=== PATIENT | female | born 1930 | race Caucasian/White ===

== ENCOUNTER 2017-12-12 07:41 | Emergency (ER) | payer MEDICARE, OTHER ==
[~2017-12-12] VITALS: Ht 147.3 cm; Wt 63.5 kg
[~2017-12-12 07:41] MED LIST: ALENDRONATE SOD70 M2 PO; ALLOPURINOL300 M1 PO; ASPIR 8181 MG PO; AUGMENTIN 500-1 EACH PO; DELSYM30 MG/5 M1 PO; FERROUS SULFAT325 M3 PO; FLEXERIL 5MG TAB5 MG PO; FUROSEMIDE20 M1 PO; HYDRODIURIL 2525 MG PO; KEFLEX500 MG PO; LASIX20 MG PO; LOPRESSOR50 MG PO; MASON NATURAL325 MG PO; MELOXICAM15 MG PO; METHYLPREDNISOLO4 M1 PO; METHYLPREDNISONE4 MG PO; METOPROLOL TART50 M1 PO; MOBIC7.5 M1 PO; NORVASC5 M1 PO; OMEPRAZOLE40 M1 PO; POTASSIUM CHLO10 ME1 PO; POTASSIUM CHLO10 ME5 PO; PREDNISONE2.5 M1 PO; PRINIVIL20 MG PO; ROBITUSSIN COU1 EACH PO; TYLENOL #31 TAB PO; TYLENOL TAB 32325 MG PO; TYLENOL WITH C1 EACH PO; ULTRAM(MONOGRAP50 MG PO; VISTARIL25 MG PO
--- NOTE | 2017-12-12 08:27 | ED GENERAL ADULT ---
History of Present Illness General Chief Complaint: Lower Extremity Problems Stated Complaint: LOWER LEG CELLULITIS Source: patient, old records Exam Limitations: no limitations Allergies Coded Allergies: colchicine (Intermediate, PALPITATIONS 05/31/17) morphine (Intermediate, N/V 05/31/17) Penicillins (Mild, NAUSEA 05/31/17) Sulfa (Sulfonamide Antibiotics) (Mild, NAUSEA 05/31/17) Reconcile Medications Alendronate Sodium 70 MG TABLET 1 TAB PO QW BONES (Reported) in the morning, at least 30 minutes before the first food, beverage, or medication of the day Allopurinol 300 MG TABLET 1 TAB PO DAILY GOUT (Reported) Amlodipine Besylate (Norvasc) 5 MG TABLET 1 TAB PO DAILY HTN (Reported) Augmentin (Augmentin 500-125 Tablet) 500 MG-125 MG TABLET 1 TAB PO BID SINUSITIS Cephalexin (Keflex) 750 MG CAPSULE 1 CAP PO BID CELLULITIS Dextromethorphan Polistirex (Delsym) 30 MG/5 ML RE.ER.12H 5-10 ML PO Q6 PRN COUGH Ferrous Sulfate 325 MG TABLET 1 TAB PO DAILY VITAMIN (Reported) Furosemide 20 MG TABLET 1 TAB PO DAILY WATER PILL (Reported) Metoprolol Tartrate 50 MG TABLET 1 TAB PO BID HTN (Reported) Omeprazole 40 MG CAPSULE.DR 1 CAP PO DAILY GERD (Reported) Potassium Chloride 10 MEQ TAB.ER.PRT 1 TAB PO DAILY SUPPLEMENT (Reported) Prednisone 2.5 MG TABLET 1 TAB PO DAILY STEROID (Reported) Triage Note: PT STATES THAT SHE HAS BEEN ON DOXY FOR 9 DAYS AFOR LLE CELLULITIS, STATES THAT SHE THINKS SHE BUMPED IT AND HAS AN OPEN AREA THAT THE SCAB FELL OFF. PT FEELS ITS GETTING RED AGAIN. ALSO STATES THAT SHE HAS HAD A HEADACHE SINCE LAST PM, 05/10. ALSO STATES THAT SHE VOMITTED X 1 LAST PM. PT WITH MULTIPLE COMPLAINTS Triage Nurses Notes Reviewed? yes Onset: Gradual Duration: day(s): Timing: recent history Severity: moderate HPI: 87-year-old female with history of DM, HTN, CAD presents emergency department complaining of skin infection and skin wound to left lower leg for over 2 weeks. Patient states that she was seen and evaluated at an urgent care 9 days ago for a nonhealing skin wound to left lower leg, she was started on doxycycline. Patient is unsure of how she injured her leg, believes she bumped it on something. Patient states that despite using antibiotics she has had redness, pain, and swelling to left lower leg. Patient states that pain was so bad that she could not sleep last night. Patient has also had intermittent headaches this week, worse last night. Patient complaining of nausea with one episode of vomiting last night. Patient also reporting intermittent chest pains, she last had chest pain 3 days ago, no chest pain currently or today. Patient reports dyspnea this morning. Patient also notes fevers and chills beginning last night. (Tyra FARRAR,Nataliya Serna) Vital Signs & Intake/Output Vital Signs & Intake/Output Vital Signs Date Time Temp Pulse Resp B/P B/P Pulse O2 O2 Flow FiO2 Mean Ox Delivery Rate 12/12 1441 97.6 68 18 140/69 98 Room Air 12/12 1234 98.1 67 16 176/80 97 Room Air 12/12 1149 98.0 70 16 159/75 97 Room Air 12/12 1046 97.7 71 18 157/75 96 Room Air 12/12 1001 97 Room Air 12/12 0744 97.6 114 18 157/80 96 Room Air (Shelley MARMOLEJO,Joe Parmar) Past History Travel History Traveled to [place] past 21 day No Medical History Any Pertinent Medical History? 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 FATHER, , Age 70; Cause: Alcoholic cirrhosis. Hx Contributory? No (Nataliya Woods) Review of Systems Review of Systems Constitutional: Reports: see HPI. EENTM: Reports: no symptoms. Respiratory: Reports: see HPI. Cardiovascular: Reports: see HPI. GI: Reports: see HPI. Genitourinary: Reports: no symptoms. Musculoskeletal: Reports: no symptoms. Skin: Reports: see HPI. Neurological/Psychological: Reports: see HPI. Hematologic/Endocrine: Reports: no symptoms. Immunologic/Allergic: Reports: no symptoms. All Other Systems: Reviewed and Negative (Tyra FARRAR,Nataliya Serna) Physical Exam Physical Exam General Appearance: well developed/nourished, no apparent distress, alert, awake Head: atraumatic, normal appearance Eyes: Bilateral: normal appearance, PERRL, EOMI. Ears, Nose, Throat: normal pharynx, normal ENT inspection, hearing grossly normal Neck: normal inspection, supple, full range of motion Respiratory: normal breath sounds, no respiratory distress, lungs clear Cardiovascular: tachycardia Peripheral Pulses: 2+ dorsalis pedis (R), 2+ dorsalis pedis (L) Gastrointestinal: normal bowel sounds, soft, non-tender, no organomegaly Back: normal inspection, normal range of motion Extremities: 2x3cm wound to left lower leg with scab present, no active drainage , mild surrounding erythema, warmth, and tenderness Neurologic/Psych: awake, alert, oriented x 3, 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 Yes CVA/TIA Diagnosis: No Sepsis Present: No Sepsis Focused Exam Completed? No (Nataliya Woods) Progress Differential Diagnoses I considered the following diagnoses in my evaluation of the patient: [ Cellulitis, acute coronary syndrome, sinusitis, influenza, gastroenteritis, sepsis, dehydration, electrolyte abnormality] Diagnostic Imaging: Viewed by Me: Radiology Read, CT Scan. Discussed w/RAD: Radiology Read, CT Scan. Radiology Impression: PATIENT: CHARITY NGUYEN PRESENT AGE: 87 PATIENT ACCOUNT NO: [id number] : 30 LOCATION: [facility] ORDERING PHYSICIAN: Nataliya FARRAR SERVICE DATE: 12/12/17 EXAM TYPE: RAD - XRY-CHEST XRAY, TWO VIEWS EXAMINATION: XR CHEST CLINICAL INFORMATION : Dyspnea and tachycardia. Evaluate for pneumonia, effusion and congestion. COMPARISON: 05/31/2017 TECHNIQUE: 2 views of the chest were obtained. FINDINGS: Lungs are well expanded. There is an old linear opacity of scarring in the inferior lingula. No pulmonary edema, consolidation or pleural effusion. No evidence of pneumonia. Mild cardiomegaly. Atherosclerotic calcification of coronary arteries. Again noted is a dilated appearance of the atherosclerotic, tortuous thoracic aorta. Mild dextrocurvature of the thoracic spine. Bones appear diffusely osteopenic. Cholelithiasis is observed within the upper abdomen. IMPRESSION: 1. Cardiomegaly without pulmonary edema or pleural effusion. 2. Grossly stable appearance of the dilated atherosclerotic aorta. 3. Cholelithiasis. DICTATED BY: Woo Levine MD DATE/TIME DICTATED:12/12/17848 HAIRSPRING INSPECTOR:RUDI DATE/TIME TRANSCRIBED:12/12/17848 CONFIDENTIAL, DO NOT COPY WITHOUT APPROPRIATE AUTHORIZATION. <Electronically signed in Other Vendor System> SIGNED BY: Woo Levine MD 12/12/1756, PATIENT: CHARITY NGUYEN PRESENT AGE: 87 PATIENT ACCOUNT NO: [id number] : 30 LOCATION: [facility] ORDERING PHYSICIAN: Nataliya FARRAR SERVICE DATE: 12/12/17 EXAM TYPE: CAT - CT HEAD WO IV CONTRAST CT HEAD WITHOUT CONTRAST CLINICAL INFORMATION: Persistent headache. COMPARISON: Head CT 02/22/2014. TECHNIQUE: Contiguous axial imaging was performed from the skull base to vertex without intravenous administration of contrast. FINDINGS: Moderate chronic microangiopathy. Intracranial atherosclerotic calcification. There is no intracranial hemorrhage, hydrocephalus, extra-axial surface collection, midline shift, or other herniation pattern. Stahl to white matter differentiation is diffusely maintained without evidence of an evolved acute territorial infarct. The basilar cisterns are preserved. No significant soft tissue abnormality. No acute osseous abnormality. There is a fluid level within the left sphenoid sinus the can be correlated for clinical signs of acute sinusitis. The left sphenoid sinus exhibits sclerotic wall thickening as the sequela of chronic sinusitis. The remaining imaged paranasal sinuses and the mastoid air cells are clear. Stable chronic anterior subluxation of the right mandibular condylar head. IMPRESSION: No acute intracranial abnormality. Moderate chronic microangiopathy. There is a fluid level within the left sphenoid sinus the can be correlated for clinical signs of acute sinusitis. Stable chronic anterior subluxation of the right mandibular condylar head. DICTATED BY: Joe Leary MD DATE/TIME DICTATED:1338 HAIRSPRING INSPECTOR:RUDI DATE/TIME TRANSCRIBED:12/12/171338 CONFIDENTIAL, DO NOT COPY WITHOUT APPROPRIATE AUTHORIZATION. <Electronically signed in Other Vendor System> SIGNED BY: Joe Leary MD 12/12/17 1347 Initial ED EKG: sinus rhythm @68bpm, nonspecific ST changes Prior EKG: unchanged (subtle ST changes x 04/28/16) (Tyra FARRAR,Nataliya Serna) Plan of Care: Orders Procedure Date/time Status Regular Diet 12/12 D Active TROPONIN LEVEL 12/12 1200 Complete EKG 12/12 1200 Active LACTIC ACID 12/12 1124 Complete RAPID VIRAL INFLUENZA A 12/12 0904 Complete BLOOD CULTURE 12/12 0825 Active TROPONIN LEVEL 12/12 0824 Complete LACTIC ACID 12/12 0824 Complete COMPREHENSIVE METABOLIC PANEL 12/12 0824 Complete CBC WITHOUT DIFFERENTIAL 12/12 0824 Complete EKG 12/12 0824 Active Current Medications Sig/Andres Start time Last Medication Dose Stop Time Status Admin Amlodipine Besylate 5 MG DAILY 12/12 1312 UNVr 12/12 (Norvasc) 1409 Metoprolol Tartrate 50 MG BID 12/12 1133 UNVr 12/12 (Lopressor) 1156 Sodium Chloride 1,000 ML Q6H 12/12 1030 AC 12/12 (Normal Saline 0.9%) 1034 Laboratory Tests 12/12/17 1152: Troponin I < 0.01 12/12/17 1152: Lactic Acid 1.6 12/12/17 0900: Anion Gap 16, Estimated GFR 59 L, BUN/Creatinine Ratio 16.7, Glucose 122 H, Lactic Acid 4.1 H, Calcium 9.6, Total Bilirubin 0.9, AST 47 H, ALT 52, Alkaline Phosphatase 82, Troponin I < 0.01, Total Protein 7.3, Albumin 4.1, Globulin 3.2, Albumin/Globulin Ratio 1.3, CBC w Diff NO MAN DIFF REQ, RBC 4.16 L, MCV 94.9, MCH 32.2 H, MCHC 33.9, RDW 15.8 H, MPV 8.1, Gran % 85.9 H, Lymphocytes % 6.4 L, Monocytes % 5.7, Eosinophils % 1.8, Basophils % 0.2, Absolute Granulocytes 5.3, Absolute Lymphocytes 0.4 L, Absolute Monocytes 0.4, Absolute Eosinophils 0.1, Absolute Basophils 0 Microbiology 12/12 09 NASOPHARYN: Influenza Virus A & B Rapid Smear - COMP 12/12 904 BLOOD: Blood Culture - RECD 12/12 899 BLOOD: Blood Culture - RECD Patient's EKG shows subtle ST changes compared to previous EKG. Patient has no active chest pain currently, experienced chest pain 3 days ago. We will obtain repeat EKG and troponin given the patient's cardiac history. Patient's mild hypokalemia was treated with oral potassium replacement here in the emergency department. Repeat EKG she was improving so ST changes, second troponin is negative. This patient does not meet SIRS criteria at this time despite elevated LActic acid. Repeat lactic acid level has improved following fluids. Patient's head CT scan shows possible sinusitis, no acute intracranial abnormality. Patient's wound shows possible mild cellulitis however no significant swelling or tenderness. Patient to follow-up with wound clinic regarding her unhealed chronic wound. Dr. Rosa presented to see and evaluate the patient who agrees with this plan. Will initiate Keflex antibiotic given her penicillin and sulfa allergies. The patient is nontoxic appearing, afebrile , no leukocytosis. Blood pressure has stabilized following patient's home oral medication. The patient agrees with the plan of care. (Tyra FARRAR,Nataliya Serna) (Shelley MARMOLEJO,Joe Parmar) Departure Departure Disposition: HOME OR SELF CARE Condition: Stable Clinical Impression Primary Impression: Hypokalemia Secondary Impressions: Wound cellulitis Referrals: Brandin Esparza MD (PCP/Family) Additional Instructions: Begin Keflex antibiotics as prescribed. Follow-up with the [facility] wound clinic regarding your wound. Keep area clean and dry. Begin The nasal spray that your primary care doctor prescribed you for sinusitis. Continue your blood pressure medication as prescribed. Follow-up with your primary care doctor. It is also recommended to follow-up with your automotive product engineer. Return if any worsening symptoms or concerns. Please note that there might be incidental findings in your evaluation that are unrelated to the current emergency department visit. Please notify your primary care doctor about this emergency department visit in order to obtain and review all of the testing performed so that these incidental findings can be monitored as needed. If you had an x-ray performed, please understand that some fractures may not be seen on the initial set of x-rays. If your symptoms persist you might need a repeat set of x-rays to check for such a fracture. If you had a laceration evaluated, please understand that foreign bodies such as glass or wood may not be visible to the naked eye or on plain x-rays. If the wound becomes red, swollen, increasingly more painful or if there is any drainage from the wound, please have it reevaluated by a physician for the possibility of a retained foreign body. If you're unable to follow up as outlined in the discharge instructions please return to the emergency department. Thank you for choosing the [facility] Emergency Department for your care. It was a pleasure to serve you today. Departure Forms: Customer Survey General Discharge Information Prescriptions: Current Visit Scripts Cephalexin (Keflex) 1 CAP PO BID #[id number] CAP (Nataliya Woods) PA/COMMUNITY DEVELOPMENT OFFICER Co-Sign Statement Statement: ED Attending supervision documentation- [X] I saw and evaluated the patient. I have also reviewed all the pertinent lab results and diagnostic results. I agree with the findings and the plan of care as documented in the PA's/COMMUNITY DEVELOPMENT OFFICER's documentation. Patient presents for evaluation of generalized weakness with shakiness and recurrence of left lateral leg pain. Patient is currently being treated for cellulitis in that region likely initiated by an ulceration. Physical examination reveals erythema and tenderness surrounding the ulceration along with warmth. There is also an area of erythema over the area of the left patella. [] I have reviewed the ED Record and agree with the PA's/COMMUNITY DEVELOPMENT OFFICER's documentation. [] Additions or exceptions (if any) to the PAs/COMMUNITY DEVELOPMENT OFFICER's note and plan are summarized below: [] (Shelley MARMOLEJO,Joe Parmar) Critical Care Note Critical Care Note Critical Care Time: non-applicable (Nataliya Woods)
--- NOTE | 2017-12-12 08:56 | RADIOLOGY REPORT ---
EXAMINATION: XR CHEST CLINICAL INFORMATION: Dyspnea and tachycardia. Evaluate for pneumonia, effusion and congestion. COMPARISON: 05/31/2017 TECHNIQUE: 2 views of the chest were obtained. FINDINGS: Lungs are well expanded. There is an old linear opacity of scarring in the inferior lingula. No pulmonary edema, consolidation or pleural effusion. No evidence of pneumonia. Mild cardiomegaly. Atherosclerotic calcification of coronary arteries. Again noted is a dilated appearance of the atherosclerotic, tortuous thoracic aorta. Mild dextrocurvature of the thoracic spine. Bones appear diffusely osteopenic. Cholelithiasis is observed within the upper abdomen. IMPRESSION: 1. Cardiomegaly without pulmonary edema or pleural effusion. 2. Grossly stable appearance of the dilated atherosclerotic aorta. 3. Cholelithiasis.
[2017-12-12 09:25] LABS: ABSOLUTE BASOPHIL COUNT 0 /CUMM (0.0-0.2); ABSOLUTE EOSINOPHIL COUNT 0.1 /CUMM (0.0-0.7); ABSOLUTE GRANULOCYTE CT 5.3 /CUMM (1.4-6.5); ABSOLUTE LYMPH COUNT 0.4 /CUMM (1.2-3.4); ABSOLUTE MONOCYTE COUNT 0.4 /CUMM (0.10-0.60); BASOPHIL % 0.2 % (0.0-2.0); EOSINOPHIL % 1.8 % (0-5); HEMATOCRIT 39.5 % (37-47); MEAN CORPUSCULAR HGB 32.2 PG (27.0-31.0); MEAN CORPUSCULAR HGB CONC 33.9 G/DL (33.0-37.0); MEAN CORPUSCULAR VOLUME 94.9 FL (81.0-99.0); MEAN PLATELET VOLUME 8.1 FL (7.4-10.4); PLATELET COUNT 138 /CUMM (130-400); RBC DISTRIBUTION WIDTH 15.8 % (11.5-14.5); RED BLOOD CELL CT 4.16 /CUMM (4.20-5.40); WHITE BLOOD CELL COUNT 6.2 /CUMM (4.8-10.8)
[2017-12-12 10:10] LABS: GRANULOCYTE % 85.9 % (42.2-75.2)
[2017-12-12] MEDS ORDERED: KEFLEX750 M1 PO (13:14)
--- NOTE | 2017-12-12 13:47 | CT SCAN REPORT ---
CT HEAD WITHOUT CONTRAST CLINICAL INFORMATION: Persistent headache. COMPARISON: Head CT 02/22/2014. TECHNIQUE: Contiguous axial imaging was performed from the skull base to vertex without intravenous administration of contrast. FINDINGS: Moderate chronic microangiopathy. Intracranial atherosclerotic calcification. There is no intracranial hemorrhage, hydrocephalus, extra-axial surface collection, midline shift, or other herniation pattern. Stahl to white matter differentiation is diffusely maintained without evidence of an evolved acute territorial infarct. The basilar cisterns are preserved. No significant soft tissue abnormality. No acute osseous abnormality. There is a fluid level within the left sphenoid sinus the can be correlated for clinical signs of acute sinusitis. The left sphenoid sinus exhibits sclerotic wall thickening as the sequela of chronic sinusitis. The remaining imaged paranasal sinuses and the mastoid air cells are clear. Stable chronic anterior subluxation of the right mandibular condylar head. IMPRESSION: No acute intracranial abnormality. Moderate chronic microangiopathy. There is a fluid level within the left sphenoid sinus the can be correlated for clinical signs of acute sinusitis. Stable chronic anterior subluxation of the right mandibular condylar head.
[2017-12-12 14:41] VITALS: BP 140/69
== END 2017-12-12 14:49 ==
LOC: ERH 07:41
PROVIDERS: Physician Assistant
DX: E87.6 Hypokalemia (principal); L03.116 Cellulitis of left lower limb; R51 Headache; R11.2 Nausea with vomiting, unspecified; R06.00 Dyspnea, unspecified
CPT/HCPCS: 71046; 87040; 87804; 87804-59; 93005; 93010; 96374; 96375; J0131; J3101